=== PATIENT | female | born 1930 | race Caucasian/White ===

== ENCOUNTER → 2016-10-04 | Day surgery (SDC) | payer MEDICARE, BC ==
[~2016-10-04] MED LIST: Lidocaine 2% 20 ML MDV INJECT ONE; Sodium Bicarbonate 8.4% 50 MEQ/50 ML SDV ONE
[2016-10-04 12:26] VITALS: BP 159/75
--- NOTE | 2016-10-04 21:56 | OR ---
DATE OF OPERATION: 10/04/2016 PREOPERATIVE DIAGNOSIS: BASAL CELL CARCINOMA LEFT CHEEK. PROCEDURE: WIDE EXCISION WITH PRIMARY CLOSURE, LESION LEFT CHEEK. DESCRIPTION OF PROCEDURE: Dr. Amado has kindly referred this lady to me with a biopsy-proven basal cell carcinoma. The lesion itself measures 1.6 cm in diameter. The lesion is nodular having a prominent raised character to the central portion; however, the peripheral aspect has some ill-defined margins. The lesion has a tendency to extend upward toward the attachment of the lower lid; however, directly not involved with this. The lesion was carefully outlined with approximately a 4 mm margin. At this point, the lesion was carefully excised. The length of the incision was 5.1 cm in total diameter. The lesion was excised primarily as an ellipse with good peripheral margins. The lesion lateral margins were carefully undermined and then the subcutaneous tissues closed with interrupted 5-0 Vicryl. Following this, the skin was carefully meticulously closed with a 6-0 nylon suture. There was a gentle traction on the lower lid; however, it closes quite nicely. At the termination of the procedure, there is a slight amount of scleral exposed; however, gentle pressure allows the lid to firmly come up against the sclera. Dressing was carefully applied. Xylocaine 2% with epinephrine buffered solution with 4 mL used. Hemostasis by gentle electrocoagulation. Following dressing application, the patient was instructed regarding wound care, and a careful recheck will be made within 24 hours. There were no complications. JIGAR/DIANE /[id number]
== END | disposition home or self-care (01) ==
LOC: CC.SDS 10:24
DX: C44.310 Basal cell carcinoma of skin of unspecified parts of face (principal); D23.39 Other benign neoplasm of skin of other parts of face; L98.499 Non-pressure chronic ulcer of skin of other sites with unspecified severity
CPT/HCPCS: 88305

== ENCOUNTER 2020-11-24 11:11 | Inpatient (IN) | payer MEDICARE, BC ==
[2020-11-24 12:13] LABS: CHLORIDE,CL 102 mEq/L (98-106); SODIUM,NA 139 mEq/L (136-145)
[2020-11-24] MEDS ORDERED: Ketorolac 30 MG/ML SDV IVPUSH ONE (13:24)
[2020-11-24] MEDS ORDERED: Ketorolac 30 MG/ML SDV IVPUSH PRN (15:15)
[2020-11-24] MEDS ORDERED: Ibuprofen 200 MG Tab PO PRN (15:15)
[2020-11-24] MEDS ORDERED: Temazepam 15 MG Cap PO PRN (15:15)
[2020-11-24] MEDS ORDERED: Acetaminophen 325 MG Tab PO PRN (15:15)
[2020-11-24] MEDS ORDERED: Sodium Chloride 0.9% 1,000 ML IV SCH (15:30)
[2020-11-24] MEDS: cefTRIAXone 1 GM Vial IVPUSH SCH (15:52)
--- NOTE | 2020-11-24 17:29 | EDM.PDOC ---
ED HPI GENERAL MEDICAL PROBLEM - General Chief Complaint: General Stated Complaint: fall Time Seen by Provider: 11/24/20 11:50 Source of Information: Reports: Patient, RN History Limitations: Reports: No Limitations - History of Present Illness INITIAL COMMENTS - FREE TEXT/NARRATIVE: Asmita is a pleasant 89 yo female who is brought into the ED by EMS after sustaining a fall at home. She states she was in the kitchen making breakfast and went to turn around. States she ended up falling and landing on her left side. States she never hit her head or lost consciousness. States she was unable to get up d/t the discomfort. Daughter was at home did try to help her up but was unable to which decided to call the ambulance. She had stated she just turned around too fast and that was when she fell. She denies any dizziness, lightheadedness, chest pain, palpitations, etc.. States she has been urinating more frequently but hasn't felt sick. Denies any shortness of breath or upper respiratory symptoms. - Related Data Allergies Allergy/AdvReac Type Severity Reaction Status Date / Time No Known Allergies Allergy Verified 11/24/20 11:24 Home Meds: Home Meds Cholecalciferol (Vitamin D3) [Vitamin D3] 5,000 unit PO DAILY 10/03/16 [History] Multivitamin [Super Multivitamin] 1 each PO DAILY 10/03/16 [History] Quinapril HCl [Accupril] 20 mg PO DAILY 10/03/16 [History] Triamterene/Hydrochlorothiazid [Triamterene-HCTZ 75-50 MG] 0.5 tab PO Q2D 10/03/16 [History] Vitamin B Complex [Balanced B-50] 1 each PO DAILY 10/03/16 [History] amLODIPine [Norvasc] 10 mg PO BEDTIME 10/03/16 [History] Past Medical History HEENT History: Reports: None Other Cardiovascular History: high B/P Respiratory History: Reports: None Genitourinary History: Reports: None Musculoskeletal History: Reports: None Neurological History: Reports: None Endocrine/Metabolic History: Reports: None Hematologic History: Reports: None - Infectious Disease History Infectious Disease History: Reports: Chicken Pox, Measles - Past Surgical History GI Surgical History: Reports: Appendectomy, Cholecystectomy Female Surgical History: Reports: Hysterectomy Social & Family History - Family History Family Medical History: No Pertinent Family History - Tobacco Use Tobacco Use Status *Q: Never Tobacco User - Caffeine Use Caffeine Use: Reports: Coffee ED ROS GENERAL - Review of Systems Review Of Systems: See Below Constitutional: Reports: Weakness. Denies: Fever, Chills, Decreased Appetite HEENT: Reports: No Symptoms Respiratory: Reports: No Symptoms. Denies: Shortness of Breath Cardiovascular: Denies: Chest Pain, Lightheadedness, Palpitations, Syncope GI/Abdominal: Reports: No Symptoms : Reports: Frequency, Incontinence. Denies: Dysuria Musculoskeletal: Reports: Back Pain Skin: Reports: No Symptoms Neurological: Reports: Difficulty Walking. Denies: Confusion, Dizziness, Headache, Paresthesia, Seizure, Syncope, Change in Speech Psychiatric: Reports: No Symptoms ED EXAM, GENERAL - Physical Exam Exam: See Below Exam Limited By: No Limitations General Appearance: Alert, No Apparent Distress Eye Exam: Bilateral Eye: EOMI Ears: Normal External Exam, Normal Canal, Hearing Grossly Normal, Normal TMs Nose: Normal Inspection, Normal Mucosa, No Blood Throat/Mouth: Normal Inspection, Normal Lips, Normal Oropharynx, Normal Voice, No Airway Compromise Head: Atraumatic, Normocephalic Neck: Normal Inspection, Supple Respiratory/Chest: No Respiratory Distress, Lungs Clear, Normal Breath Sounds, No Accessory Muscle Use Cardiovascular: Regular Rate, Rhythm, No Murmur GI/Abdominal: Normal Bowel Sounds, Soft, Non-Tender, No Distention Back Exam: Paraspinal Tenderness (left sided) Extremities: No: Leg Pain, Limited Range of Motion Neurological: Alert, Oriented, CN II-XII Intact, Normal Cognition, No Motor/Sensory Deficits Psychiatric: Normal Affect, Normal Mood Skin Exam: Warm, Dry, Intact, Normal Color, No Rash Course - Vital Signs Last Recorded V/S: Last Vital Signs Temp 98.9 F 11/24/20 16:00 Pulse 102 H 11/24/20 16:00 Resp 18 11/24/20 16:00 BP 156/69 H 11/24/20 16:00 Pulse Ox 92 L 11/24/20 16:00 - Orders/Labs/Meds Orders: Active Orders 24 hr Category Date Time Status Hip Min 2V or 3V w Pelvis Lt [CR] Stat Exams 11/24/20 12:15 Taken Lumbar Spine wo Cont [CT] Stat Exams 11/24/20 11:44 Taken CULTURE URINE [RM] Stat Lab 11/24/20 11:30 Received Medication Orders Acetaminophen (Acetaminophen 325 Mg Tab) 650 mg PO Q4H PRN PRN Reason: Pain (Mild 1-3)/fever Amlodipine Besylate (Amlodipine 10 Mg Tab) 10 mg PO BEDTIME [facility] Ceftriaxone Sodium (Ceftriaxone 1 Gm Vial) 1 gm IVPUSH Q24H [facility] Last Admin: 11/24/20 15:52 Dose: 1 gm Documented by: ASHISH Docusate Sodium (Docusate Sodium 100 Mg Cap) 100 mg PO BID PRN PRN Reason: Constipation Enoxaparin Sodium (Enoxaparin 30 Mg/0.3 Ml Syringe) 30 mg SUBCUT Q24H [facility] Sodium Chloride (Normal Saline) 1,000 mls @ 75 mls/hr IV ASDIRECTED [facility] Last Admin: 11/24/20 15:53 Dose: 75 mls/hr Documented by: ASHISH Ketorolac Tromethamine (Ketorolac 30 Mg/Ml Sdv) 15 mg IVPUSH Q6H PRN PRN Reason: Pain (moderate 4-6) Lisinopril (Lisinopril 10 Mg Tab) 10 mg PO DAILY [facility] Temazepam (Temazepam 15 Mg Cap) 15 mg PO BEDTIME PRN PRN Reason: Sleep Triamterene/Hydrochlorothiazide (Hydrochlorothiazide/Triamterene 25-37.5 Mg Cap) 1 each PO Q2D [facility] Labs: Laboratory Tests 11/24/20 11/24/20 11/24/20 Range/Units 11:30 11:55 11:55 WBC 12.6 H (4.0-11.0) 10^3/uL RBC 5.06 (4.00-5.50) x10^6/uL Hgb 16.0 (12.0-16.0) g/dL Hct 46.3 (37.0-47.0) % MCV 91.5 (83.0-97.0) fL MCH 31.6 (27.0-32.0) pg MCHC 34.6 (32.0-36.0) g/dL RDW Coeff of Michi 13.1 (11.0-15.0) % Plt Count 109 L (150-400) 10^3/uL Add Manual Diff Yes Neutrophils % (Manual) 84 (35-85) % Band Neutrophils % 6 H (0-5) % Lymphocytes % (Manual) 4 L (21-55) % Monocytes % (Manual) 6 (2-12) % Sodium 139 (136-145) mEq/L Potassium 3.3 L (3.5-5.0) mEq/L Chloride 102 (98-106) mEq/L Carbon Dioxide 26 (21-32) mmol/L BUN 17 (7-18) mg/dL Creatinine 1.0 (0.6-1.0) mg/dL Est Cr Clr Drug Dosing 28.78 mL/min Estimated GFR (MDRD) 52 L (>=60) mL/min Glucose 132 H (75-99) mg/dL Calcium 9.0 (8.4-10.1) mg/dL Total Bilirubin 1.0 (0.0-1.0) mg/dL AST 29 (15-37) U/L ALT 24 (12-78) U/L Alkaline Phosphatase 71 (46-116) U/L C-Reactive Protein < 0.2 L (0.2-0.8) mg/dL Total Protein 7.5 (6.4-8.2) g/dL Albumin 3.9 (3.4-5.0) g/dL Urine Color Yellow (YELLOW) Urine Appearance Cloudy (CLEAR) Urine pH 6.0 (4.5-8.0) Ur Specific Jensen 1.020 (1.003-1.020) Urine Protein Negative (NEGATIVE) mg/dL Urine Glucose (UA) Negative (NEGATIVE) mg/dL Urine Ketones Trace H (NEGATIVE) mg/dL Urine Occult Blood Trace-intact H (NEGATIVE) Urine Nitrite Positive H (NEGATIVE) Urine Bilirubin Negative (NEGATIVE) Urine Urobilinogen 0.2 (0.2-1.0) EU/dL Ur Leukocyte Esterase Moderate H (NEGATIVE) Urine RBC 0-5 (0-5) /HPF Urine WBC >100 H (0-5) /HPF Ur Squamous Epith Cells Few H (NOT SEEN) /HPF Urine Bacteria Many H (NOT SEEN) /HPF Urinalysis Comment Meds: Medications Generic Name Dose Route Start Last Admin Trade Name Freq PRN Reason Stop Dose Admin Acetaminophen 650 mg 11/24/20 15:15 Acetaminophen 325 Mg Tab PO Q4H PRN Pain (Mild 1-3)/fever Amlodipine Besylate 10 mg 11/24/20 20:00 Amlodipine 10 Mg Tab PO BEDTIME [facility] Ceftriaxone Sodium 1 gm 11/24/20 16:00 11/24/20 15:52 Ceftriaxone 1 Gm Vial IVPUSH 1 gm Q24H [facility] Administration Docusate Sodium 100 mg 11/24/20 20:00 Docusate Sodium 100 Mg Cap PO BID PRN Constipation Enoxaparin Sodium 30 mg 11/25/20 08:00 Enoxaparin 30 Mg/0.3 Ml Syringe SUBCUT Q24H [facility] Sodium Chloride 1,000 mls @ 75 mls/hr 11/24/20 15:30 11/24/20 15:53 Normal Saline IV 75 mls/hr ASDIRECTED [facility] Administration Ketorolac Tromethamine 15 mg 11/24/20 15:15 Ketorolac 30 Mg/Ml Sdv IVPUSH Q6H PRN Pain (moderate 4-6) Lisinopril 10 mg 11/25/20 08:00 Lisinopril 10 Mg Tab PO DAILY [facility] Temazepam 15 mg 11/24/20 15:15 Temazepam 15 Mg Cap PO BEDTIME PRN Sleep Triamterene/Hydrochlorothiazide 1 each 11/25/20 08:00 Hydrochlorothiazide/Triamterene 25-37.5 Mg Cap PO Q2D [facility] Discontinued Medications Generic Name Dose Route Start Last Admin Trade Name Freq PRN Reason Stop Dose Admin Ibuprofen 400 mg 11/24/20 15:15 Ibuprofen 200 Mg Tab PO Q6H PRN Pain (mild 1-3) Ketorolac Tromethamine 15 mg 11/24/20 13:24 11/24/20 13:30 Ketorolac 30 Mg/Ml Sdv IVPUSH 11/24/20 13:25 15 mg ONETIME ONE Administration Departure - Departure Time of Disposition: 15:00 Disposition: Admitted As Inpatient 67 Clinical Impression: Unable to ambulate UTI (urinary tract infection) Qualifiers: Urinary tract infection type: acute cystitis Hematuria presence: with hematuria Qualified Code(s): N30.01 - Acute cystitis with hematuria Low back pain Qualifiers: Chronicity: acute Back pain laterality: left Sciatica presence: without sciatica Qualified Code(s): M54.5 - Low back pain - Discharge Information Sepsis Event Note (ED) - Evaluation Sepsis Screening Result: No Definite Risk - Focused Exam Vital Signs: Vital Signs Temp Pulse Resp BP Pulse Ox 11/24/20 11:34 98.7 F 109 H 16 174/86 H 93 L 11/24/20 11:26 98.7 F 109 H 16 174/86 H 93 L - Problem List & Annotations (1) Low back pain SNOMED Code(s): 390040555 Code(s): M54.5 - LOW BACK PAIN Status: Acute Current Visit: Yes Qualifiers: Chronicity: acute Back pain laterality: left Sciatica presence: without sciatica Qualified Code(s): M54.5 - Low back pain (2) UTI (urinary tract infection) SNOMED Code(s): 42283767 Code(s): N39.0 - URINARY TRACT INFECTION, SITE NOT SPECIFIED Status: Acute Current Visit: Yes Qualifiers: Urinary tract infection type: acute cystitis Hematuria presence: with hematuria Qualified Code(s): N30.01 - Acute cystitis with hematuria (3) Unable to ambulate SNOMED Code(s): 630338895 Code(s): R26.2 - DIFFICULTY IN WALKING, NOT ELSEWHERE CLASSIFIED Status: Acute Current Visit: Yes - Problem List Review Problem List Initiated/Reviewed/Updated: Yes - My Orders Last 24 Hours: My Active Orders 11/24/20 11:30 CULTURE URINE [RM] Stat 11/24/20 11:44 Lumbar Spine wo Cont [CT] Stat 11/24/20 12:15 Hip Min 2V or 3V w Pelvis Lt [CR] Stat - Assessment/Plan Admission H&P: Please use this note as an admission H&P Last 24 Hours: My Active Orders 11/24/20 11:30 CULTURE URINE [RM] Stat 11/24/20 11:44 Lumbar Spine wo Cont [CT] Stat 11/24/20 12:15 Hip Min 2V or 3V w Pelvis Lt [CR] Stat Plan: Patient did show positive UTI. Review of lumbar CT was unremarkable, no definitive fractures noted. X-ray of pelvis and right hip stable, no fracture noted. Will admit to Dr. Mari's services for IV antibiotics and PT for strengthening and ambulation. Dr. Mari consulted today on admission.
[2020-11-24] MEDS ORDERED: Docusate Sodium 100 MG Cap PO PRN (20:00)
[2020-11-24] MEDS: amLODIPine 10 MG Tab PO SCH ×2 (20:16→20:33)
[2020-11-25] MEDS: Lisinopril 10 MG Tab PO SCH (07:56)
[2020-11-25] MEDS: Enoxaparin 30 MG/0.3 ML Syringe SUBCUT SCH (07:56)
[2020-11-25] MEDS: Hydrochlorothiazide/Triamterene 25-37.5 MG Cap PO SCH (07:59)
[2020-11-25] MEDS ORDERED: amLODIPine 10 MG Tab PO STA (10:01)
--- NOTE | 2020-11-25 11:58 | PN ---
DATE: 11/24/2020 S: Ms. Linares was admitted yesterday by K[facility] for UTIs. She had fallen at home and was just having a hard time getting around. She had a positive urine and was started on Rocephin. For the most part, she is better. Yesterday, she would not move a whole lot just because she felt like she had pain and stiffness in the pelvis. X-rays were negative. O: GENERAL: She is pleasant and cooperative. NECK: Her neck veins are flat. LUNGS: Clear. CARDIAC: Tones are regular. ABDOMEN: Soft. She has no tenderness. Good bowel sounds noted throughout. EXTREMITIES: No edema. ASSESSMENT: 1. URINARY TRACT INFECTION. 2. FALL WITH PELVIC CONTUSION. 3. HYPERTENSION. 4. HYPOKALEMIA. P: Reviewing her lab work, she did have low potassium level. I will get a magnesium level. Start her on oral replacement. She is only minimally low around 3.3. We will continue her on IV Rocephin until we see results of her culture. PT will be working with her to start ambulating. MY/DIANE /[id number]
[2020-11-25] MEDS: cefTRIAXone 1 GM Vial IVPUSH SCH (15:27)
[2020-11-25] MEDS: Potassium Chloride 10 MEQ Tab.ER PO SCH (17:00)
[2020-11-25] MEDS: amLODIPine 10 MG Tab PO SCH (19:02)
[2020-11-26] MEDS: Lisinopril 10 MG Tab PO SCH (08:07)
[2020-11-26] MEDS: Enoxaparin 30 MG/0.3 ML Syringe SUBCUT SCH (08:07)
[2020-11-26] MEDS: Potassium Chloride 10 MEQ Tab.ER PO SCH ×2 (08:08→17:37)
--- NOTE | 2020-11-26 11:02 | PN ---
DATE: 11/26/2020 S: Asmita is doing better. Her blood pressures have been improved since we got her back on her 10 mg of Norvasc. She remains afebrile. For the most part doing fine. She continues to be a little hypokalemic. We will be rechecking her potassium level tomorrow. Her magnesium level was normal. Her main complaint is that of her back pain. She has had no urinary symptoms. Urine culture still pending. O: GENERAL: She is pleasant, alert, and cooperative, appears in no distress. HEENT: Benign. NECK: Neck veins are flat. LUNGS: Lung sounds are clear to both bases. CARDIAC: Tones are regular. ABDOMEN: Soft. No tenderness. EXTREMITIES: No peripheral edema seen. BACK: A little bit of paraspinal muscle spasm in the lower lumbar area, but otherwise benign. ASSESSMENT: 1. FALL WITH PELVIC AND BACK CONTUSION. 2. URINARY TRACT INFECTION. 3. HYPERTENSION. 4. HYPOKALEMIA. P: The patient should be ready for discharge by tomorrow. We will continue with PT today. She is getting IV Rocephin and looking at her urine culture it looks like she grew out E coli sensitive to cephalosporin. Plan for discharge tomorrow morning. MY/DIANE /[id number]
[2020-11-26] MEDS: cefTRIAXone 1 GM Vial IVPUSH SCH (16:10)
[2020-11-26] MEDS: amLODIPine 10 MG Tab PO SCH (20:07)
[2020-11-27 07:46] LABS: CHLORIDE,CL 97 mEq/L (98-106); SODIUM,NA 129 mEq/L (136-145)
[2020-11-27] MEDS: Lisinopril 10 MG Tab PO SCH (08:07)
[2020-11-27] MEDS: Enoxaparin 30 MG/0.3 ML Syringe SUBCUT SCH (08:07)
[2020-11-27] MEDS: Potassium Chloride 10 MEQ Tab.ER PO SCH (08:07)
[2020-11-27] MEDS: Hydrochlorothiazide/Triamterene 25-37.5 MG Cap PO SCH (08:13)
[2020-11-27] MEDS ORDERED: cefTRIAXone 1 GM Vial IVPUSH SCH (10:30)
[2020-11-27 13:57] VITALS: BP 170/70; PULSE 92
--- NOTE | 2020-12-01 11:36 | DISCH ---
ADMISSION DIAGNOSES: 1. Fall with low back and pelvic pain. 2. Urinary tract infection. 3. Hypertension. 4. Hypokalemia. DISCHARGE DIAGNOSIS: 1. FALL WITH LOW BACK AND PELVIC PAIN. 2. URINARY TRACT INFECTION. 3. HYPERTENSION. 4. HYPOKALEMIA, RESOLVED. HISTORY: The patient is an 89-year-old who fell at home. She was weak and was found to ultimately have a UTI. She had x-rays of her pelvis and low back without any acute fractures. She was admitted for treatment of her infection and strengthening. HOSPITAL COURSE: She has been given IV Rocephin. She had a urine culture confirming E. coli sensitive to such and she has done fine in that regard. Has not had any fevers, hypotension, etc. Her blood pressures have been a little bit elevated and we have been slowly bringing them down and she will continue to titrate that as an outpatient. She did have hypokalemia on admit and we have corrected that with both IV and oral potassium replacement. At this time, she looks clinically well. She did have PT while she has been here and she has been ambulating on her own without any difficulty. She will get her last dose of Rocephin today and then she will have another 5 days of outpatient Ceftin and we will follow her up next week in the clinic for a recheck. COMPLICATIONS: During her stay were none. CONSULTATIONS: Physical Therapy. DISPOSITION: Discharged home. ELANA /[id number]
== END 2020-11-27 14:29 | disposition home or self-care (01) | DRG 690 ==
LOC: CC.ED 11:11 → CC.MS 14:53 → UNDOADMIN 14:53 → CC.MS 15:04
PROVIDERS: ADMIT Physician Assistant Medical; ATTEND Family Medicine
DX: N30.01 Acute cystitis with hematuria (principal); S30.0XXA Contusion of lower back and pelvis, initial encounter; M54.5 Low back pain; E87.6 Hypokalemia; R26.2 Difficulty in walking, not elsewhere classified; W19.XXXA Unspecified fall, initial encounter; Z90.49 Acquired absence of other specified parts of digestive tract; W18.39XA Other fall on same level, initial encounter; Z90.710 Acquired absence of both cervix and uterus; Y92.009 Unspecified place in unspecified non-institutional (private) residence as the place of occurrence of the external cause; Y92.000 Kitchen of unspecified non-institutional (private) residence as the place of occurrence of the external cause; I10 Essential (primary) hypertension; Z79.899 Other long term (current) drug therapy
CPT/HCPCS: 36415; 72131; 80048; 80053; 81001; 81003; 83735; 85025; 86140; 87086; 87088; 87186; 96374; 97110-GP; 97161-GP; 97530-GP; 99285-25; A9270-GY; J0696; J1650; J1885; J7030